=== PATIENT | female | born 1935 | race Caucasian/White ===

== ENCOUNTER 2018-05-07 11:10 | Observation (INO) ==
--- NOTE | 2018-05-07 11:40 | Emergency Department Note ---
General Adult HPI - General Source: patient Mode of arrival: ambulatory Limitations: no limitations - General Chief complaint: Blood Pressure Problem Stated complaint: hypotension, tingling in upper extremities Time Seen by Provider: 05/07/18 11:13 - History of Present Illness HPI Narrative: 82-year-old female presents with hypotension from [facility]. She had blood work done there and was treated with Rocephin for urinary tract infection. She states in the last 2 days she has had frequent urination and some pain with urination. She states every time she sits down to urinate she has a sensation that goes from her feet to her chest and it is intense and passes quickly. She denies any fever or chills. She states she does have some dizziness when she stands up. She does not take any blood pressure medication. She denies nausea or vomiting. She has been trying to drink a lot of water to help with the urinary tract infection. (Kimi Santos) - Related Data Home Medications Medication Instructions Recorded Confirmed Aspirin [Adult Low Dose Aspirin EC] 81 mg PO DAILY 04/15/17 05/07/18 Calcium Citrate/Vitamin D3 1 each PO BID 04/15/17 05/07/18 [Citracal + D Maximum Caplet] Ergocalciferol (Vitamin D2) 5,000 unit PO DAILY 04/15/17 05/07/18 [Vitamin D] Fish Oil 1,400 mg PO DAILY 04/15/17 05/07/18 Glucos/MSM/Colgii/C/Man/Herb21 1 each PO BID 04/15/17 05/07/18 [Glucosamine-MSM Complex Cap] Vitamin E 400 unit PO DAILY 04/15/17 05/07/18 fluticasone 50 mcg/actuation nasal 1 spray INTRANASAL QDAY PRN 09/30/17 05/07/18 spray,suspension ibuprofen 200 mg tablet 800 mg PO QDAY PRN tab 09/30/17 05/07/18 ketorolac 0.5 % eye drops 1 drp OPHTHALMIC Q8H PRN 09/30/17 05/07/18 magnesium oxide 400 mg capsule 400 mg PO QDAY cap 09/30/17 05/07/18 Previous Rx's Medication Instructions Recorded latanoprost 0.005 % eye drops 1 drp OPHTHALMIC QDAY #2.5 ml 12/05/16 dorzolamide 2 % eye drops 1 drp OPHTHALMIC BID #10 ml 12/08/16 E2/E3 20/80 1 mg/gm 0.5 mg TOPICAL .every other day 09/30/17 #60 g sertraline 50 mg tablet 50 mg PO QDAY #90 tab 11/24/17 omeprazole 40 mg capsule,delayed 40 mg PO BID #60 cap 12/01/17 release triamcinolone acetonide 0.1 % 1 applic TOPICAL BID #30 g 02/05/18 topical ointment hydroxyzine HCl 25 mg tablet 25 mg PO HS #30 tab 03/04/18 atorvastatin 40 mg tablet 40 mg PO QDAY #30 tab 04/01/18 Allergies Allergy/AdvReac Type Severity Reaction Status Date / Time codeine AdvReac Dizziness Verified 05/07/18 10:26 Review of Systems All systems ED: reviewed and negative except as stated. Past Medical History - Past Medical History Medical history: Reports: arthritis, dementia, GERD, hyperlipidemia, liver disease (cirrhosis), osteoporosis, TIA, other Psychiatric history: Reports: anxiety, depression [employer] history: Reports: non-contributory Surgical history ED: Reports: appendectomy, cholecystectomy, colectomy Family history: Reports: non-contributory - Social History smoking status: Never smoker Alcohol use: Reports: None Drug use: Reports: none Physical Exam Limitations: no limitations General appearance: alert, in no apparent distress Head: atraumatic Eye: Present: normal appearance. Absent: conjunctival injection Neck: Present: normal inspection, full ROM Chest: Present: normal inspection, symmetric chest wall rise Respiratory: Present: normal lung sounds bilaterally Cardiovascular: Present: regular rate, normal heart sounds Abdominal: Present: soft, normal bowel sounds. Absent: tenderness Extremities: Present: normal inspection, full ROM Neurological: Present: alert, oriented X3, CN II-XII intact Psychiatric: Present: normal affect, normal mood Skin: Present: warm, dry, intact Course Course Narrative: Patient states she has a history of low blood pressure throughout the day. She states she stands up quickly she gets dizzy and that has been going on for years. She states she has had multiple falls due to this. She states that the sensation of tingling over her body is new since his urinary tract infection. She has episodes when standing that she feels like she is going to pass out. She continues to have these symptoms of warmth over her body. Mild change with 2 L of fluid. She will be admitted for observation. (Santos,Kimi) Vital Signs Temperature 97.5 F 05/07/18 11:11 Pulse Rate 65 05/07/18 11:11 Respiratory Rate 14 05/07/18 11:11 Blood Pressure 125/73 05/07/18 11:11 Pulse Oximetry (%) 95 05/07/18 11:11 Temperature 97.5 F 05/07/18 11:11 Pulse Rate 67 05/07/18 14:31 Respiratory Rate 16 05/07/18 14:31 Blood Pressure 123/87 05/07/18 14:31 Pulse Oximetry (%) 93 05/07/18 14:31 Medical Decision Making - Lab Data Lab results reviewed: Yes I reviewed the patient's lab results. - Radiology Data Radiology results reviewed: Yes I reviewed the patient's radiology results. - EKG Data EKG #1 EKG attestation: Yes I reviewed and interpreted this EKG. - Lab Data Lab Results 05/07/18 05/07/18 Range/Units 11:42 11:42 VBG Lactic Acid 1.6 (0.5-2.2) mmol/L Troponin T < 0.01 (0-0.03) ng/ml - Radiology Data no acute disease (Santos,Kimi) - EKG Data EKG #1 EKG results narrative: RBBB no evidence of acute changes (Santos,Kimi) Disposition Pt seen by SNAKE CHARMER/PA only: Yes Clinical Impression: Hypotension, UTI (urinary tract infection) Disposition: Xfer As Outpt/Obs ([facility]) Condition: Fair Referrals: Letty Meyer DO [Primary Care Provider] -
[2018-05-07] MEDS ORDERED: 0.9 % SODIUM CHLORIDE 1,000 ML IV ONE ×2 (11:41→12:42)
--- NOTE | 2018-05-07 13:15 | XRay Report ---
CLINICAL INFORMATION: Shortness of breath COMPARISON: 06/09/2017 FINDINGS: Heart is normal in size and configuration. There is very heavy mitral annular calcification appreciated. Mediastinum and pulmonary vessels are normal. Lungs are clear. No effusions. Moderate degenerative disease at each level appreciated IMPRESSION: No acute disease - stable Interpreted and Authenticated by: Jose Curiel 05/07/18
--- NOTE | 2018-05-07 14:26 | Emergency Department Note ---
ED Note Addendum Note Addendum: agree with lab and dx.. Hospitalist Dr Mosher contacted by Kimi and he will be here to evaluate
[2018-05-07] MEDS ORDERED: KETOROLAC TROMETHAMINE OPHTHALMIC PRN (15:37)
[2018-05-07] MEDS ORDERED: FLUTICASONE PROPIONATE SPRAY.NAS NS PRN ×2 (15:37→17:12)
[2018-05-07] MEDS ORDERED: [UNRECOGNIZED DRUG - MIXTURE] TOPICAL SCH ×2 (15:45→17:12)
--- NOTE | 2018-05-07 16:04 | Internal Med History&Physical ---
Medical - H&P: HPI Patient information: Note initiated : 05/07/18 at 3:54 pm Service Date, if different from initiated Date: [] Patient: Davida Thorne a 82 y/o F admitted on for hypotension, n/t to extremities. Chief Complaint: UTI and warm tingly feeling and dizzyness on toilet voiding urine History of present illness: Ms. Thorne is a 82 year old F lives at [facility]. has been having recurrent UTI every 2 weeks to 2 months. Pt says this is evidenced by fevers, chills, dysuria and weakness. Also has had yeast vaginitis in past but not currently. Uses estrogen cream. Pt says US of bladder and kidneys ok. No obstruction or tumor. Pt has been having repeated falls in past but denies LOC. Says it occurred when blinded by sun and cataracts and also when she tripped. Has never awakened on the floor. Pt reports vertigo symptoms and was not improved by David maneuver. Pt denies abx allergy. Pt had sbp 90 on arrival and nausea and weak on rising initially. improved but still present after 1 liter NS improved further after 2nd liter. Pt reports has voided copiously now. The pt says drinks 4 glasses water minimum daily. Regardless she reports getting weak and dizzy with ambulation episodically and will test low for bp. TSH normal 3 times in last 2 years. Pt had right hemicolectomy for non adenoCA colon cancer 2 years ago. Denies getting chemo or radiation after. - Constitutional Constitutional: Present: fatigue, fever(s), frequent falls, malaise, weakness - EENT Eyes: Present: blurry vision (cataracts) Ears: Present: other (vertigo). Absent: decreased hearing, ear pain Nose, mouth and throat: Present: dizziness, vertigo. Absent: neck pain - Cardiovascular Cardiovascular: Present: irregular heart rhythm. Absent: chest pain, chest pain with activity, diaphoresis, palpatations - Respiratory Respiratory: Absent: cough, chest congestion - Gastrointestinal Gastrointestinal: Present: diarrhea, nausea (only with episode) - Genitourinary Genitourinary: Present: urinary frequency, urinary incontinence, vaginal dryness , vaginal pruritis Menstruation: Present: post menopausal - Musculoskeletal Musculoskeletal: Present: tingling - Integumentary Integumentary: Absent: swelling - Neurological Neurological: Present: frequent falls, vertigo, weakness. Absent: abnormal gait - Psychiatric Psychiatric: Present: anxiety - Endocrine Endocrine: Present: fatigue, flushing - Hematologic/Lymphatic Hematologic/Lymphatic: Absent: easy bleeding, easy bruising - Allergic/Immunologic Allergic/Immunologic: Absent: tongue swelling, throat swelling, wheezing Medical - H&P: PMH Medical history: recurrent UTI TIA colon Cancer rare type (not adenoca) vertigo Surgical history: Right hemicolectomy Social history: daughter in town is next of kin Wants full code status Smoking status: Never smoker Have you smoked in the last 12 months: No Drug use: none Alcohol use: none Employment history: teacher now retired Medical - H&P: Meds Home Medications Medication Instructions Recorded Confirmed Type latanoprost 0.005 % eye drops 1 drp OPHTHALMIC QDAY #2.5 ml 12/05/16 05/07/18 Rx dorzolamide 2 % eye drops 1 drp OPHTHALMIC BID #10 ml 12/08/16 05/07/18 Rx Aspirin [Adult Low Dose Aspirin EC] 81 mg PO DAILY 04/15/17 05/07/18 History Calcium Citrate/Vitamin D3 1 each PO BID 04/15/17 05/07/18 History [Citracal + D Maximum Caplet] Ergocalciferol (Vitamin D2) 5,000 unit PO DAILY 04/15/17 05/07/18 History [Vitamin D] Fish Oil 1,400 mg PO DAILY 04/15/17 05/07/18 History Glucos/MSM/Colgii/C/Man/Herb21 1 each PO BID 04/15/17 05/07/18 History [Glucosamine-MSM Complex Cap] Vitamin E 400 unit PO DAILY 04/15/17 05/07/18 History E2/E3 20/80 1 mg/gm 0.5 mg TOPICAL .every other day 09/30/17 05/07/18 Rx #60 g fluticasone 50 mcg/actuation nasal 1 spray INTRANASAL QDAY PRN 09/30/17 History spray,suspension ibuprofen 200 mg tablet 800 mg PO QDAY PRN tab 09/30/17 05/07/18 History ketorolac 0.5 % eye drops 1 drp OPHTHALMIC Q8H PRN 09/30/17 05/07/18 History magnesium oxide 400 mg capsule 400 mg PO QDAY cap 09/30/17 05/07/18 History sertraline 50 mg tablet 50 mg PO QDAY #90 tab 11/24/17 05/07/18 Rx omeprazole 40 mg capsule,delayed 40 mg PO BID #60 cap 12/01/17 05/07/18 Rx release triamcinolone acetonide 0.1 % 1 applic TOPICAL BID #30 g 02/05/18 05/07/18 Rx topical ointment hydroxyzine HCl 25 mg tablet 25 mg PO HS #30 tab 03/04/18 05/07/18 Rx atorvastatin 40 mg tablet 40 mg PO QDAY #30 tab 04/01/18 05/07/18 Rx Allergies Allergy/AdvReac Type Severity Reaction Status Date / Time codeine AdvReac Dizziness Verified 05/07/18 10:26 Medical - H&P: Exam - Constitutional Vitals: Temp Pulse Resp BP Pulse Ox 97.5 F 67 16 123/87 93 05/07/18 11:11 05/07/18 14:31 05/07/18 14:31 05/07/18 14:31 05/07/18 14:31 General appearance: average body habitus, no acute distress - Head Head exam: Present: atraumatic, normal inspection, normocephalic - Eye Eye exam: Present: EOMI, normal appearance, PERRL. Absent: conjunctival injection, nystagmus, scleral icterus Pupils: Present: normal accommodation, PERRL - ENT ENT exam: Present: mucous membranes moist, normal oropharynx - Expanded ENT Exam Nose & sinuses exam: Present: external nose, grossly normal Mouth exam: Present: normal external inspection, tongue normal Teeth exam: Present: edentulous (dentures upper) - Neck Neck exam: Present: full ROM. Absent: tenderness - Expanded Neck Exam Neck exam: Absent: tenderness, thyroid mass - Respiratory Respiratory exam: Present: normal respiratory exam - Cardiovascular Cardiovascular exam: Present: normal rate and rhythm. Absent: systolic murmur Additional comments: some irregularity on rhythm but sinus arrhythmia no pause - Expanded Cardiovascular Exam Peripheral pulses: 1+: dorsalis pedis (L), dorsalis pedis (R), radial (L), radial (R) - GI/Abdominal GI/Abdominal exam: Present: normal bowel sounds, soft. Absent: rebound, rigid, tenderness - Rectal Rectal exam: Absent: deferred - Expanded Exam Female exam: Absent: deferred Bladder Distention Description: None - Extremities Exam Extremities exam: Absent: pedal edema, tenderness - Expanded Neurological Exam Neurological exam expanded: Absent: ataxia, expressive aphasia Patient oriented to: Present: person, place Speech: Present: fluid speech (normal) Ataxia: Absent: yes Medical - H&P: Reslt - Labs Labs: Cardiac Enzymes 05/07/18 Range/Units 11:42 Troponin T < 0.01 (0-0.03) ng/ml - EKG Data Prior EKG available for review: yes EKG comments: 05/07/18 16:23 sinus arrhythmia and PACs Medical - H&P: A/P (1) Vasovagal near-syncope Current visit: Yes Status: Acute will monitor on telemetry and increase activity with physical therapy and observation admission (2) Hypotension Current visit: Yes Status: Acute resolved with fluid. orthostatics now negative but pt has recurrent dehydration will check am cosyntropin stim test. could not perform outpt so placed in observation. (3) UTI (urinary tract infection) Current visit: Yes Status: Acute cont rocephin pending urine culture results (4) N&V (nausea and vomiting) Current visit: No Status: Chronic awaiting am cortisol stim test. - Narrative A/P Narrative: 70 mins spent in evaluation and coordination of care for this patient today
[2018-05-07] MEDS ORDERED: KETOROLAC TROMETHAMINE 3 ML DROPS OP PRN (19:00)
[2018-05-07] MEDS: TIMOLOL MALEATE OU SCH (21:00)
[2018-05-07] MEDS ORDERED: DORZOLAMIDE HCL OPHTHALMIC SCH (21:00)
[2018-05-07] MEDS ORDERED: TRIAMCINOLONE ACETONIDE TOPICAL SCH (21:00)
[2018-05-07] MEDS ORDERED: NON FORMULARY MEDICATION 1 DOSE MISCELL (Omeprazole 40 MG) PO SCH (21:00)
[2018-05-07] MEDS: DORZOLAMIDE HCL OU SCH (21:00)
[2018-05-07] MEDS: TRIAMCINOLONE ACETONIDE TOPICAL SCH (21:00)
[2018-05-07] MEDS ORDERED: ATORVASTATIN 20 MG TABLET PO SCH (21:00)
[2018-05-07] MEDS: CALCIUM W/VIT D3 500 MG TABLET PO SCH (21:12)
[2018-05-07] MEDS ORDERED: 0.9 % SODIUM CHLORIDE 10 ML SYRINGE IV SCH (22:00)
[2018-05-08] MEDS ORDERED: COSYNTROPIN 0.25 MG VIAL IV ONE (06:01)
[2018-05-08] MEDS ORDERED: ACETAMINOPHEN 325 MG TABLET PO PRN (07:19)
[2018-05-08] MEDS ORDERED: OMEPRAZOLE 20 MG CAPSULE PO SCH (07:30)
[2018-05-08 07:38] LABS: Cortisol,AM 13.1 ug/dl (6.2-19.4)
[2018-05-08] MEDS ORDERED: NON FORMULARY MEDICATION 1 DOSE MISCELL (Aspirin [Adult Low Dose Aspirin Ec] 81 MG) PO SCH (09:00)
[2018-05-08] MEDS ORDERED: NON FORMULARY MEDICATION 1 DOSE MISCELL (Magnesium Oxide [Magnesium] 400 MG) PO SCH (09:00)
[2018-05-08] MEDS ORDERED: [UNRECOGNIZED DRUG - OTHER] PO SCH (09:00)
[2018-05-08] MEDS ORDERED: VITAMIN E (DL,TOCOPHERYL ACET) 400 UNIT CAPSULE PO SCH (09:00)
[2018-05-08] MEDS ORDERED: LATANOPROST OPHTHALMIC SCH (09:00)
[2018-05-08] MEDS ORDERED: VITAMIN E 400 UNIT PO SCH (09:00)
[2018-05-08] MEDS ORDERED: ASPIRIN 81 MG TAB.CHEW PO SCH (09:00)
[2018-05-08] MEDS ORDERED: VITAMIN D3 5,000 UNIT CAPSULE PO SCH (09:00)
[2018-05-08] MEDS ORDERED: MAGNESIUM OXIDE 400 MG TABLET PO SCH (09:00)
[2018-05-08] MEDS ORDERED: ERGOCALCIFEROL PO SCH (09:00)
[2018-05-08] MEDS ORDERED: SERTRALINE 50 MG TABLET PO SCH ×2 (09:00)
[2018-05-08] MEDS ORDERED: NON FORMULARY MEDICATION 1 DOSE MISCELL (Omeprazole 40 MG) PO SCH (09:00)
[2018-05-08] MEDS ORDERED: ATORVASTATIN 40 MG TABLET PO SCH (09:00)
[2018-05-08] MEDS: TIMOLOL MALEATE OU SCH (09:20)
[2018-05-08] MEDS: DORZOLAMIDE HCL OU SCH (09:20)
[2018-05-08] MEDS: TRIAMCINOLONE ACETONIDE TOPICAL SCH (09:21)
[2018-05-08] MEDS: CALCIUM W/VIT D3 500 MG TABLET PO SCH (09:27)
--- NOTE | 2018-05-08 10:47 | Discharge Summary ---
Medical - DS: Prov Patient information: Note initiated : 05/08/18 at 10:39 am Service Date, if different from initiated Date: [] Patient: Davida Thorne 82 y/o F admitted on 05/07/18 for hypotension, n /t to extremities. Chief Complaint: [] Date of admission: 05/07/18 17:00 Discharge date: 05/08/18 (to assisted care) Primary care physician: Letty Meyer DO Admitting clinician: Floyd Mosher Attending physician on admission: Floyd Mosher Consults: 05/07/18 13:42 Consult to Physician [CONS] Stat Comment: Consulting Provider: Floyd Mosher Reason For Exam: Physician to Consult Attending physician on discharge: Floyd Mosher Medical - DS: Meds - Discharge Medications Active and Home Medications: Home Medications latanoprost 0.005 % eye drops 1 drp OPHTHALMIC QDAY #2.5 ml 12/05/16 [Rx Confirmed 05/07/18 Last Taken Unknown] dorzolamide 2 % eye drops 1 drp OPHTHALMIC BID #10 ml 12/08/16 [Rx Confirmed 07/17 Last Taken Unknown] Aspirin [Adult Low Dose Aspirin EC] 81 mg PO DAILY 04/15/17 [History Confirmed 05/07/18 Last Taken Unknown] Calcium Citrate/Vitamin D3 [Citracal + D Maximum Caplet] 1 each PO BID 04/15/17 [History Confirmed 05/07/18 Last Taken Unknown] Ergocalciferol (Vitamin D2) [Vitamin D] 5,000 unit PO DAILY 04/15/17 [History Confirmed 05/07/18 Last Taken Unknown] Fish Oil 1,400 mg PO DAILY 04/15/17 [History Confirmed 05/07/18 Last Taken Unknown] Glucos/MSM/Colgii/C/Man/Herb21 [Glucosamine-MSM Complex Cap] 1 each PO BID 04/15 [History Confirmed 05/07/18 Last Taken Unknown] Vitamin E 400 unit PO DAILY 04/15/17 [History Confirmed 05/07/18 Last Taken Unknown] E2/E3 20/80 1 mg/gm 0.5 mg TOPICAL .every other day #60 g 09/30/17 [Rx Confirmed 05/07/18 Last Taken Unknown] fluticasone 50 mcg/actuation nasal spray,suspension 1 spray INTRANASAL QDAY PRN 09/30/17 [History Confirmed 05/07/18 Last Taken Unknown] ibuprofen 200 mg tablet 800 mg PO QDAY PRN tab 09/30/17 [History Confirmed 07/17 Last Taken Unknown] ketorolac 0.5 % eye drops 1 drp OPHTHALMIC Q8H PRN 09/30/17 [History Confirmed 05/07/18 Last Taken Unknown] magnesium oxide 400 mg capsule 400 mg PO QDAY cap 09/30/17 [History Confirmed 05/07/18 Last Taken Unknown] sertraline 50 mg tablet 50 mg PO QDAY #90 tab 11/24/17 [Rx Confirmed 05/07/18 Last Taken Unknown] omeprazole 40 mg capsule,delayed release 40 mg PO BID #60 cap 12/01/17 [Rx Confirmed 05/07/18 Last Taken Unknown] triamcinolone acetonide 0.1 % topical ointment 1 applic TOPICAL BID #30 g [Rx Confirmed 05/07/18 Last Taken Unknown] hydroxyzine HCl 25 mg tablet 25 mg PO HS #30 tab 03/04/18 [Rx Confirmed Last Taken Unknown] atorvastatin 40 mg tablet 40 mg PO QDAY #30 tab 04/01/18 [Rx Confirmed 05/07/18 Last Taken Unknown] Medical - DS: Hosp Hospital course: Mr. Thorne is a 82 year old F admitted for symptoms UTI seen in [facility] and found to have hypotension and orthostasis. This improved with 2 liters IVF and she has had not further near syncope. Pt Rhythm is NSR with frequent PACs and occ PVC but not pauses, zena or tachyarrhythmia. Pt reports recurrent UTI but the UA in [facility] only weakly positive. Culture is pending. Additionally pt report 4 trip falls and no passing out but given vertigo and frequent orthostatic hypotension we monitored overnight and no orthostasis or arrhythmia. Pt also has normal cosyntropin stimulation test. Discharge diagnosis: Orthostatic hypotension resolved Secondary discharge diagnosis: recurrent UTI Reason for admission: recurrent falls/near syncope - Time Spent with Patient Total time spent providing and/or coordinating discharge services: 35 minutes Greater than 30 minutes Specific discharge activities: follow up with PCP or urology in 1 week Medical - DS: Exam - Constitutional Vitals: Vital Signs Temp Pulse Pulse Resp BP BP Pulse Ox 05/08/18 07:43 97.7 F 66 16 132/77 93 05/08/18 04:00 97.8 F 20 131/74 95 05/08/18 00:00 97.5 F 18 121/84 94 05/07/18 21:00 70 93 05/07/18 20:51 69 122/71 93 05/07/18 20:00 98.4 F 72 16 122/71 95 05/07/18 17:25 98.0 F 64 18 129/77 97 05/07/18 17:20 129/77 05/07/18 17:00 98.0 F 65 67 18 135/66 129/77 97 05/07/18 16:40 65 96 05/07/18 16:27 66 135/66 94 05/07/18 15:31 13 135/66 05/07/18 15:16 16 132/75 05/07/18 15:07 21 127/73 05/07/18 15:06 21 122/69 05/07/18 15:03 21 111/62 05/07/18 14:46 64 12 120/70 93 05/07/18 14:31 67 16 123/87 93 05/07/18 14:16 66 13 107/65 92 05/07/18 13:46 15 106/54 05/07/18 13:31 14 105/63 05/07/18 13:29 16 05/07/18 13:22 22 119/77 05/07/18 13:19 107/48 05/07/18 13:16 71 19 96/61 96 05/07/18 13:01 14 91/51 05/07/18 12:46 69 14 92/54 91 05/07/18 12:31 71 14 99/64 91 05/07/18 12:20 14 92/52 05/07/18 11:11 97.5 F 65 14 125/73 95 Intake and Output 05/07/18 05/08/18 05/08/18 21:59 05:59 13:59 Intake Total 360 / 360 300 / 300 590 / 590 Output Total 750 / 750 550 / 550 Balance 359 / 359 -450 / -450 40 / 40 Intake: Oral 360 / 360 300 / 300 590 / 590 Output: Void Amount 750 / 750 550 / 550 # of times incontinent of urine Other: Meal Dinner Breakfast Percent of Meal Consumed 100% 100% Feeding Ability Independent # Voids 1 1 Weight 168 lb - Head Additional comments: some thickening of posterior occipital scalp with dry skin but no fluctuance or infection seen - Respiratory Respiratory exam: Present: CTAB. Absent: rales, respiratory distress, wheezes - Cardiovascular Cardiovascular exam: Present: normal rate and rhythm - Extremities Exam Extremities exam: Absent: calf tenderness, pedal edema - Psychiatric Psychiatric exam: Present: normal affect, normal mood Medical - DS: Data Labs on day of discharge: Labs from last 24 hours 05/08/18 05/08/18 05/08/18 07:12 06:28 06:02 VBG Lactic Acid Troponin T Cortisol AM Sample 13.1 Cortisol Resp 30 Min 19.6 TNP Cortisol Resp 60 Min 21.4 05/07/18 05/07/18 11:42 11:42 VBG Lactic Acid 1.6 Troponin T < 0.01 Cortisol AM Sample Cortisol Resp 30 Min Cortisol Resp 60 Min Medical - DS: A/P - Patient/Caregiver Discharge Instructions Activity: increase activity as tolerated, resume usual activities as tolerated Diet: Regular Diet - Problem Maintenance (1) Vasovagal near-syncope Status: Acute Comment: no recurrence in hospital. orthostasis resolved after fluid infusion (2) Hypotension Status: Acute Comment: resolved Qualifiers: Hypotension type: orthostatic hypotension Qualified Code(s): I95.1 - Orthostatic hypotension (3) UTI (urinary tract infection) Status: Acute Qualifiers: Urinary tract infection type: acute cystitis Hematuria presence: without hematuria Qualified Code(s): N30.00 - Acute cystitis without hematuria (4) N&V (nausea and vomiting) Status: Resolved Qualifiers: Vomiting type: bilious vomiting Qualified Code(s): R11.14 - Bilious vomiting - Follow up Plan Follow up with: Letty Meyer DO [Primary Care Provider] - Disposition: Home, Self-Care Prognosis: Good Rehab Potential: Good I certify that the patient requires SNF services: No Overall status at discharge: patient is back to baseline Medical - DS: Qual - VTE Deep Vein Thrombosis/Pulmonary Embolism Present on Admission: No
[2018-05-08] MEDS ORDERED: LATANOPROST 0.005% OU SCH (21:00)
[2018-05-08] MEDS ORDERED: EYE OU SCH (21:00)
== END 2018-05-08 12:00 | disposition home or self-care (01) ==
LOC: ED 11:10 → ICU 11:10
PROVIDERS: ADMIT Internal Medicine; ATTEND Internal Medicine

== ENCOUNTER 2018-08-14 04:22 | Observation (INO) ==
[2018-08-14] MEDS ORDERED: ONDANSETRON 4 MG/2 ML VIAL IV ONE ×2 (04:28→07:46)
[2018-08-14] MEDS ORDERED: 0.9 % SODIUM CHLORIDE 1,000 ML IV ONE ×2 (04:36→06:19)
[2018-08-14 05:30] LABS: Basophils # (Auto) 0 K/mcL (0.0-0.3); Basophils % (Auto) 0.3 % (0.0-2.0); Eosinophils # (Auto) 0.1 K/mcL (0.0-0.7); Eosinophils % (Auto) 0.9 % (0.0-7.0); Granulocytes % (Auto) 92.1 % (38.0-78.0); Lymphocytes # (Auto) 0.5 K/mcL (1.5-4.8); Lymphocytes % (Auto) 3.9 % (15.5-49.0); Mean Cell Volume 97.5 fL (80.0-100.0); Mean Corpuscular HGB Conc 33.3 g/dL (31.0-36.0); Mean Corpuscular Hemoglobin 32.5 pg (26.0-34.0); Monocytes # (Auto) 0.4 K/mcL (0.1-0.9); Monocytes % (Auto) 2.8 % (1.0-12.0); Platelet Count 225 K/mcL (140-440); RBC 4.72 M/mcL (4.00-5.20); Red Cell Distribution Width 13.7 % (11.5-14.5)
[2018-08-14 06:08] LABS: ALT/SGPT 30 U/l (0-40); Albumin 4.5 gm/dL (3.2-5.2); Albumin/Globulin Ratio 1.5 (1.0-2.3); Alkaline Phosphatase 86 U/L (39-117); Blood Urea Nitrogen 20 mg/dl (8-23)
--- NOTE | 2018-08-14 07:24 | Emergency Department Note ---
Nausea/Vomiting/Diarrhea HPI - General Chief complaint: Nausea/Vomiting/Diarrhea Stated complaint: nausea Time Seen by Provider: 08/14/18 06:50 Source: patient Mode of arrival: wheelchair Limitations: no limitations - History of Present Illness HPI Narrative: This patient has had nausea vomiting from midnight to about 4 AM when she came into the emergency room. She feels thirsty and dehydrated and says some diarrhea. MD complaint: nausea, vomiting Onset (ago): hour(s) Description of Vomiting: watery Associated Abdominal Pain: Yes Location of pain: diffuse Severity: mild Quality: cramping Consistency: intermittent Improves with: none Worsens with: none - Related Data Home Medications Medication Instructions Recorded Confirmed Aspirin [Adult Low Dose Aspirin EC] 81 mg PO DAILY 04/15/17 08/10/18 Calcium Citrate/Vitamin D3 1 each PO BID 04/15/17 08/10/18 [Citracal + D Maximum Caplet] Vitamin E 400 unit PO DAILY 04/15/17 08/10/18 fluticasone 50 mcg/actuation nasal 1 spray INTRANASAL QDAY PRN 09/30/17 08/10/18 spray,suspension ibuprofen 200 mg tablet 800 mg PO QDAY PRN tab 09/30/17 08/10/18 ketorolac 0.5 % eye drops 1 drp OPHTHALMIC Q8H PRN 09/30/17 08/10/18 magnesium oxide 400 mg capsule 400 mg PO QDAY cap 09/30/17 08/10/18 benzonatate 100 mg capsule 100 mg PO TID PRN 06/01/18 08/10/18 cholecalciferol (vitamin D3) 5,000 5,000 unit PO QDAY 06/01/18 08/10/18 unit capsule phenazopyridine 95 mg tablet 190 mg PO TID PRN tab 06/01/18 08/10/18 calcium carb,cit ER 600 mg 1 tab PO BID tab 06/10/18 08/10/18 calcium-vit D3 500 unit tablet,ext.release cetirizine 10 mg capsule 10 mg PO QDAY cap 06/10/18 08/10/18 glucosamine sulfate PO BID 06/10/18 08/10/18 ibuprofen 200 mg tablet 400 mg PO Q4H PRN tab 06/10/18 08/10/18 ketorolac 0.5 % eye drops 1 drp OPHTHALMIC TID PRN ml 06/10/18 08/10/18 latanoprost 0.005 % eye drops 1 drp OPHTHALMIC QHS ml 06/10/18 08/10/18 omega-3 fatty acids 1,000 mg 1,000 mg PO QDAY 06/10/18 08/10/18 capsule solifenacin 5 mg tablet 5 mg PO QDAY 06/10/18 08/10/18 tramadol 50 mg tablet 50 mg PO Q4H PRN tab 06/10/18 08/10/18 Previous Rx's Medication Instructions Recorded dorzolamide 2 % eye drops 1 drp OPHTHALMIC BID #10 ml 12/08/16 sertraline 50 mg tablet 50 mg PO QDAY #90 tab 11/24/17 triamcinolone acetonide 0.1 % 1 applic TOPICAL BID #30 g 02/05/18 topical ointment atorvastatin 40 mg tablet 40 mg PO QDAY #90 tab 06/10/18 omeprazole 40 mg capsule,delayed 40 mg PO BID #180 cap 06/30/18 release Allergies Allergy/AdvReac Type Severity Reaction Status Date / Time codeine AdvReac Mild Dizziness Verified 08/14/18 04:27 Review of Systems All systems ED: reviewed and negative except as stated. Past Medical History - Past Medical History Medical history: Reports: arthritis, dementia, GERD, hyperlipidemia, liver disease (cirrhosis), osteoporosis, TIA, other Psychiatric history: Reports: anxiety, depression [employer] history: Reports: non-contributory Surgical history ED: Reports: appendectomy, cholecystectomy, colectomy - Social History smoking status: Former smoker Alcohol use: Reports: None Drug use: Reports: none Physical Exam Limitations: no limitations General appearance: alert Head: atraumatic Eye: Present: normal appearance ENT: normal exam Neck: Present: normal inspection Chest: Present: normal inspection Respiratory: Present: normal lung sounds bilaterally Cardiovascular: Present: regular rate, normal rhythm, normal heart sounds Abdominal: Present: soft, tenderness. Absent: distention, guarding, rebound Abdominal tenderness: Present: diffuse, mild Neurological: Present: alert Psychiatric: Present: normal affect, normal mood Skin: Present: warm, dry, intact Course Vital Signs Temperature 96.8 F L 08/14/18 04:22 Pulse Rate 75 08/14/18 04:22 Respiratory Rate 18 08/14/18 04:22 Blood Pressure 97/83 08/14/18 04:22 Pulse Oximetry (%) 99 08/14/18 04:22 Temperature 96.8 F L 08/14/18 04:22 Pulse Rate 92 H 08/14/18 08:37 Respiratory Rate 16 08/14/18 08:37 Blood Pressure 89/63 08/14/18 08:32 Pulse Oximetry (%) 93 08/14/18 08:37 Nausea/Vomiting/Diarrhea - [facility] Narrative Medical decision making narrative: Patient's laboratory evaluation so far is not too remarkable she has a slight elevated white count. Her chest x-ray is read as showing interstitial edema which is new for her she has never had any history of heart failure in the past and has no edema. She does require oxygen and is without oxygen her saturations are in the mid 80s. She continues to feel nauseated and very weak and has had 2 L of fluid and despite that her blood pressure is 89 systolic. I discussed this case with Dr. Langston the patient will be admitted to the hospital. - Lab Data Lab results reviewed: Yes I reviewed the patient's lab results. Result diagrams: 08/14/18 04:37 08/14/18 04:37 Lab Results 08/14/18 08/14/18 08/14/18 Range/Units 04:37 04:37 07:47 WBC 13.4 H (4.5-11.0) K/mcL RBC 4.72 (4.00-5.20) M/mcL Hgb 15.3 H (12.0-15.0) g/dL Hct 46.1 (36.0-48.0) % MCV 97.5 (80.0-100.0) fL MCH 32.5 (26.0-34.0) pg MCHC 33.3 (31.0-36.0) g/dL RDW 13.7 (11.5-14.5) % Plt Count 225 (140-440) K/mcL MPV 8.4 (7.4-10.4) fL Gran % 92.1 H (38.0-78.0) % Lymph % (Auto) 3.9 L (15.5-49.0) % [place] % (Auto) 2.8 (1.0-12.0) % Eos % (Auto) 0.9 (0.0-7.0) % Baso % (Auto) 0.3 (0.0-2.0) % Gran # 12.3 H (1.8-8.0) K/mcL Lymph # (Auto) 0.5 L (1.5-4.8) K/mcL [place] # (Auto) 0.4 (0.1-0.9) K/mcL Eos # (Auto) 0.1 (0.0-0.7) K/mcL Baso # (Auto) 0 (0.0-0.3) K/mcL Sodium 139 (133-145) mmol/L Potassium 4.0 (3.3-5.1) mmol/L Chloride 101 (96-108) mmol/L Carbon Dioxide 26 (22-30) mmol/L Anion Gap 12.0 (8-16) BUN 20 (8-23) mg/dl Creatinine 0.9 (0.6-1.1) mg/dl GFR Calculation 59 Glucose 150 H (70-105) mg/dL Calcium 9.2 (8.6-10.4) mg/dl Total Bilirubin 1.2 H (0.0-1.0) mg/dL AST 37 (0-37) U/l ALT 30 (0-40) U/l Alkaline Phosphatase 86 (39-117) U/L Total Protein 7.6 (5.9-8.4) gm/dL Albumin 4.5 (3.2-5.2) gm/dL Globulin 3.1 (2.2-3.7) gm/dL Albumin/Globulin Ratio 1.5 (1.0-2.3) Urine Color Yellow Urine Appearance Clear Urine pH 5.0 (5.0-9.0) Ur Specific [place] 1.020 (1.000-1.035) Urine Protein Neg (NEG) mg/dL Urine Glucose (UA) Negative (NEG) mg/dL Urine Ketones Neg (NEG) mg/dL Urine Occult Blood Neg (<0.03) mg/dL Urine Nitrate Neg (NEG) Urine Bilirubin Neg (NEG) mg/dL Urine Urobilinogen Neg (NEG) mg/dL Ur Leukocyte Esterase Neg (NEG) /uL Urine RBC 5 H (0-1) /hpf Urine WBC < 1 (0-4) /hpf Ur Squamous Epith Cells 1 (0-4) /hpf Amorphous Crystals Few A (0) /hpf Urine Bacteria 0 (0) /hpf Urine Mucus Few (0) /hpf Ur Culture Indicated? No - Radiology Data Radiology results reviewed: Yes I reviewed the patient's radiology results. Disposition Pt seen by [facility]/PA only: No Clinical Impression: Gastroenteritis, Hypoxia, Hypotension, Interstitial edema Disposition: Xfer As Inpt ([facility]) Condition: Good Referrals: aIm Peace MD [Primary Care Provider] - Time of Disposition: 08:55
[2018-08-14] MEDS ORDERED: PROMETHAZINE 25 MG/ML VIAL IV ONE (08:23)
[2018-08-14] MEDS ORDERED: LACTATED RINGERS 1,000 ML IV ONE (08:23)
--- NOTE | 2018-08-14 08:39 | XRay Report ---
INDICATION: Dyspnea TECHNIQUE: PA and lateral upright chest x-ray COMPARISON: 05/07/2018, 06/09/2017 FINDINGS: No pulmonary parenchymal consolidation. No pneumonia. There are septal lines which are new since 05/07/2018. Mild interstitial edema is possible. No evidence for alveolar edema. Heart size and vascularity are unchanged. There is prominent mitral valve annular calcification, unchanged Yuly and mediastinum are negative. No pleural fluid. IMPRESSION: 1. Findings consistent with mild interstitial pulmonary edema 2. No other acute abnormality. No focal infiltrate. Interpreted and Authenticated by: Jose Pham 08/14/18
[2018-08-14 08:50] LABS: Appearance,Urine CLEAR; Bacteria,Urine 0 /hpf (0); Bilirubin,Urine NEG (NEG); Color,Urine YELLOW; Glucose,Urine (UA) NEGATIVE (NEG); Leukocyte Esterase,Urine NEG /uL (NEG); Mucus,Urine FEW /hpf (0); Protein,Urine NEG (NEG); Urine Amorphous Crystals FEW /hpf (0); Urine Blood NEG mg/dL (<0.03); Urine RBC 5 /hpf (0-1); Urine Squamous Epithelial Cell 1 /hpf (0-4); Urine WBC < 1 /hpf (0-4); Urobilinogen,Urine NEG (NEG)
[2018-08-14 09:12] LABS: proBNP 381.6 pg/ml (0-450)
--- NOTE | 2018-08-14 09:30 | Internal Med History&Physical ---
Medical - H&P: [facility] Patient information: Note initiated : 08/14/18 at 9:25 am Service Date, if different from initiated Date: [] Patient: Davida Thorne a 82 y/o F admitted on for nausea. Chief Complaint: [] History of present illness: Ms. Thorne is a 82 year old F Complains of nausea vomiting starting at 4 AM this morning from [place]. Last night she ate some soup and avocado went to bed feeling okay. She woke up around 4 feeling like she had an upset stomach she went to the bathroom threw up food contents. Went back to bed and immediately return to the bathroom to throw up. She said she been throwing up all morning. She threw up about 20 times first of this food ended up being yellow fluid very acidic. Denies any chest pain or shortness of breath. States her stomach is still upset. No recent illnesses. No diarrhea. Patient seen in the ER found to be mildly hypotensive given fluid resuscitation with good results. Also found to be mildly hypoxic, and placed on nasal cannula. Chest x-ray done with some interstitial prominence low BNP. No peripheral edema. Because of the hypoxia patient will be observed overnight. Concern for aspiration pneumonitis. Review of Systems: Positive for nausea vomiting upset stomach. Positive for headache fever chills. denies chest pain/cough/dyspnea/diarrhea. Remaining 10 point review of systems reviewed and negative Medical - H&P: PMH Medical history: Medical History (Last Reviewed 08/03/18 @ 15:33 by Jacki Marques DO) Sinus problem (Chronic) Rhinitis (Chronic) Bronchitis (Chronic) High cholesterol (Chronic) Recurrent falls (Chronic) Headache (Chronic) Sleep apnea with use of continuous positive airway pressure (CPAP) (Chronic) Itch of skin (Chronic) Chronic rhinitis (Chronic) Depressive disorder (Chronic) Glaucoma (Acute) Hypotension (Acute) Vasovagal near-syncope (Acute) TRUMAN on CPAP (Chronic) Paronychia of great toe, left (Acute) Atopic dermatitis (Acute) Urinary tract infection (Acute) UTI (urinary tract infection) (Acute) N&V (nausea and vomiting) (Resolved) Colicky epigastric pain (Acute) UTI (urinary tract infection) (Acute) Incontinence in female (Chronic) Wellness examination (Chronic) Sinusitis (Acute) Ingrowing toenail (Acute) TIA (transient ischemic attack) (Chronic ~2004) Osteoporosis (Chronic) Liver disease (Chronic) Hyperlipidemia (Chronic) Gallbladder problem (Chronic ~2014) Depression (Chronic) Daytime sleepiness (Chronic) Arthritis (Chronic) Anxiety (Chronic) Acid reflux (Chronic) History of tobacco use (Resolved) Past Surgical History (Last Reviewed 04/06/18 @ 13:18 by RAFIA Garibay) History of hysterectomy (Acute) H/O colonoscopy (Chronic 01/01/17) History of cholecystectomy (Chronic ~11/2014) History of colon resection (Chronic ~05/2015) History of esophagogastroduodenoscopy (EGD) (Chronic 01/01/17) Hx of appendectomy (Chronic ~05/2015) Hx of rotator cuff surgery (Chronic ~12/2009) Family History (Last Reviewed 04/06/18 @ 13:18 by RAFIA Garibay) Brother Bladder cancer Esophagus cancer Mother from motor vehicle accident 44 Father was healthy Social History (Last Updated 08/10/18 @ 15:00 by Iam Peace MD) Patient denies tobacco use or ever using Drinks alcohol rarely Does not use a cane or walker to [facility] Resides at [facility] Medical - H&P: Meds Home Medications Medication Instructions Recorded Confirmed Type dorzolamide 2 % eye drops 1 drp OPHTHALMIC BID #10 ml 12/08/16 08/14/18 Rx Aspirin [Adult Low Dose Aspirin EC] 81 mg PO DAILY 04/15/17 08/14/18 History Calcium Citrate/Vitamin D3 1 each PO BID 04/15/17 08/14/18 History [Citracal + D Maximum Caplet] Vitamin E 400 unit PO DAILY 04/15/17 08/14/18 History fluticasone 50 mcg/actuation nasal 1 spray INTRANASAL QDAY PRN 09/30/17 History spray,suspension ibuprofen 200 mg tablet 800 mg PO QDAY PRN tab 09/30/17 08/14/18 History ketorolac 0.5 % eye drops 1 drp OPHTHALMIC Q8H PRN 09/30/17 08/14/18 History magnesium oxide 400 mg capsule 400 mg PO QDAY cap 09/30/17 08/14/18 History sertraline 50 mg tablet 50 mg PO QDAY #90 tab 11/24/17 08/14/18 Rx triamcinolone acetonide 0.1 % 1 applic TOPICAL BID #30 g 02/05/18 08/14/18 Rx topical ointment benzonatate 100 mg capsule 100 mg PO TID PRN 06/01/18 08/14/18 History cholecalciferol (vitamin D3) 5,000 5,000 unit PO QDAY 06/01/18 08/14/18 History unit capsule phenazopyridine 95 mg tablet 190 mg PO TID PRN tab 06/01/18 08/14/18 History atorvastatin 40 mg tablet 40 mg PO QDAY #90 tab 06/10/18 08/14/18 Rx calcium carb,cit ER 600 mg 1 tab PO BID tab 06/10/18 08/14/18 History calcium-vit D3 500 unit tablet,ext.release cetirizine 10 mg capsule 10 mg PO QDAY cap 06/10/18 08/14/18 History glucosamine sulfate 1,500 mg PO BID 06/10/18 08/14/18 History ibuprofen 200 mg tablet 400 mg PO Q4H PRN tab 06/10/18 08/14/18 History ketorolac 0.5 % eye drops 1 drp OPHTHALMIC TID PRN ml 06/10/18 08/14/18 History latanoprost 0.005 % eye drops 1 drp OPHTHALMIC QHS ml 06/10/18 08/14/18 History omega-3 fatty acids 1,000 mg 1,000 mg PO QDAY 06/10/18 08/14/18 History capsule solifenacin 5 mg tablet 5 mg PO QDAY 06/10/18 08/14/18 History tramadol 50 mg tablet 50 mg PO Q4H PRN tab 06/10/18 08/14/18 History omeprazole 40 mg capsule,delayed 40 mg PO BID #180 cap 06/30/18 08/14/18 Rx release Acetaminophen [Tylenol] 500 mg PO Q4-6HP PRN 08/14/18 08/14/18 History Allergies Allergy/AdvReac Type Severity Reaction Status Date / Time codeine AdvReac Mild Dizziness Verified 08/14/18 04:27 Medical - H&P: Exam - Constitutional Vitals: Temp Pulse Resp BP Pulse Ox 96.8 F L 95 H 16 99/73 91 08/14/18 04:22 08/14/18 09:19 08/14/18 08:37 08/14/18 09:16 08/14/18 09:19 Exam: General: Alert, Awake, No acute Distress HEENT: EOMI, normocephalic atraumatic, pupils equal round reactive to light, dry mucous membranes CV: RRR, normal s1/s2 Pulm: Clear b/l, no wheezing/rhonchi/rales Abd: soft, mild generalized tenderness to abdominal wall s/p emesis, no focal tenderness, +BS x4 Ext: no clubbing/cyanosis/edema Neuro: Alert, no focal deficits, moves all extremities Skin: warm/dry ` Medical - H&P: Reslt - Labs CBC & Chem 7: 08/14/18 04:37 08/14/18 04:37 Labs: Short CBC 08/14/18 Range/Units 04:37 WBC 13.4 H (4.5-11.0) K/mcL Hgb 15.3 H (12.0-15.0) g/dL Hct 46.1 (36.0-48.0) % Plt Count 225 (140-440) K/mcL BMP 08/14/18 04:37 Sodium 139 Potassium 4.0 Chloride 101 Carbon Dioxide 26 BUN 20 Creatinine 0.9 Glucose 150 H Calcium 9.2 Liver Function 08/14/18 Range/Units 04:37 Total Bilirubin 1.2 H (0.0-1.0) mg/dL AST 37 (0-37) U/l ALT 30 (0-40) U/l Alkaline Phosphatase 86 (39-117) U/L Albumin 4.5 (3.2-5.2) gm/dL Urine 08/14/18 Range/Units 07:47 Urine Color Yellow Urine Appearance Clear Urine pH 5.0 (5.0-9.0) Ur Specific [place] 1.020 (1.000-1.035) Urine Protein Neg (NEG) mg/dL Urine Glucose (UA) Negative (NEG) mg/dL Medical - H&P: A/P - Narrative A/P Narrative: A: *Gastroenteritis with N/V: *Respiratory failure: suspect Aspiration pneumonitis -Chest x-ray with some interstitial prominence, low BNP -2L NC *Leukocytosis: afebrile. low PCT. likely reactive from nausea/vomiting/ gastroenteritis *Hypotension in ED: volume depletion from above + baseline low (looking at old ED visits and PCP notes, she seems to run in 90's-100's systolic at baseline) -resolution in ED *History of orthostatic hypotension: *TRUMAN on CPAP: *Depression/anxiety: *GERD P: -Status post IV fluid hydration -monitor o2 closely, IS hourly -wean down O2 -f/u CBC, Abx held for now -Home CPAP - -ppx: Lovenox/home PPI
[2018-08-14 09:53] LABS: Band Neutrophils % 11 % (0-10); Basophils % (Manual) 1 % (0-2); Lymphocytes % 4 % (15-49); Monocytes % (Manual) 5 % (1-12); Platelet Estimate NORMAL (NORMAL); RBC Morphology NORMAL (NORMAL); Segmented Neutrophils % 79 % (38-78); Toxic Granulation 1+ (NONE SEEN)
[2018-08-14] MEDS ORDERED: ACETAMINOPHEN 500 MG TABLET PO PRN (11:02)
[2018-08-14] MEDS ORDERED: PROCHLORPERAZINE 10 MG/2 ML VIAL IV PRN (11:02)
[2018-08-14] MEDS ORDERED: KETOROLAC TROMETHAMINE OPHTHALMIC PRN (11:02)
[2018-08-14] MEDS ORDERED: [UNRECOGNIZED DRUG - OTHER] OU PRN (11:02)
[2018-08-14] MEDS ORDERED: IPRATROPIUM/ALBUTEROL 3 ML AMPUL.NEB NEB PRN (11:02)
[2018-08-14] MEDS ORDERED: ONDANSETRON ODT 4 MG TABLET SL PRN (11:02)
[2018-08-14] MEDS: traMADol 50 MG TABLET PO PRN ×2 (12:03→23:07)
[2018-08-14] MEDS: 0.9 % SODIUM CHLORIDE 10 ML SYRINGE IV SCH ×2 (13:30→20:00)
[2018-08-14] MEDS: ACETAMINOPHEN 325 MG TABLET PO PRN (17:41)
[2018-08-14] MEDS: OMEPRAZOLE 20 MG CAPSULE PO SCH (17:43)
[2018-08-14] MEDS: TIMOLOL OU SCH (20:10)
[2018-08-14] MEDS: EYE OU SCH (20:10)
[2018-08-14] MEDS: LATANOPROST OPHTH DROPS 2.5ML BOTTLE OU SCH (20:10)
[2018-08-14] MEDS: ATORVASTATIN 20 MG TABLET PO SCH (20:10)
[2018-08-14] MEDS: DORZOLAMIDE OU SCH (20:10)
[2018-08-14] MEDS: TRIAMCINOLONE CRM 0.5% TUBE 15GM TOPICAL SCH (20:43)
[2018-08-15] MEDS: ACETAMINOPHEN 325 MG TABLET PO PRN (02:14)
[2018-08-15] MEDS: 0.9 % SODIUM CHLORIDE 10 ML SYRINGE IV SCH ×3 (05:56→22:06)
[2018-08-15 06:57] LABS: ALT/SGPT 23 U/l (0-40); Albumin 3.3 gm/dL (3.2-5.2); Albumin/Globulin Ratio 1.4 (1.0-2.3); Alkaline Phosphatase 45 U/L (39-117); Bilirubin,Direct 0.2 mg/dL (0.0-0.3); Blood Urea Nitrogen 10 mg/dl (8-23); Gamma Glutamyl Transpeptidase 19 U/L (5-36); Uric Acid 3.8 mg/dL (2.5-8.0)
[2018-08-15 07:12] LABS: Basophils # (Auto) 0 K/mcL (0.0-0.3); Basophils % (Auto) 0.2 % (0.0-2.0); Eosinophils # (Auto) 0.1 K/mcL (0.0-0.7); Eosinophils % (Auto) 1.1 % (0.0-7.0); Granulocytes % (Auto) 80.5 % (38.0-78.0); Lymphocytes # (Auto) 0.7 K/mcL (1.5-4.8); Lymphocytes % (Auto) 12.3 % (15.5-49.0); Mean Cell Volume 98.6 fL (80.0-100.0); Mean Corpuscular HGB Conc 33.7 g/dL (31.0-36.0); Mean Corpuscular Hemoglobin 33.3 pg (26.0-34.0); Monocytes # (Auto) 0.3 K/mcL (0.1-0.9); Monocytes % (Auto) 5.9 % (1.0-12.0); Platelet Count 180 K/mcL (140-440)
[2018-08-15] MEDS: OMEPRAZOLE 20 MG CAPSULE PO SCH (07:53)
[2018-08-15] MEDS: ASPIRIN 81 MG TAB.CHEW PO SCH (09:38)
[2018-08-15] MEDS: SERTRALINE 50 MG TABLET PO SCH (09:38)
[2018-08-15] MEDS: ENOXAPARIN 40 MG/0.4 ML SYRINGE SQ SCH (09:38)
[2018-08-15] MEDS: Solifenacin Succinate [Vesicare] 10 mg Tab PO SCH (09:39)
[2018-08-15] MEDS: DORZOLAMIDE OU SCH ×2 (09:40→21:00)
[2018-08-15] MEDS: EYE OU SCH ×2 (09:40→21:00)
[2018-08-15] MEDS: TIMOLOL OU SCH ×2 (09:40→21:00)
[2018-08-15] MEDS: TRIAMCINOLONE CRM 0.5% TUBE 15GM TOPICAL SCH ×2 (09:40→19:36)
[2018-08-15] MEDS ORDERED: 0.9 % SODIUM CHLORIDE 1,000 ML IV SCH (09:45)
[2018-08-15] MEDS: PANTOPRAZOLE 40 MG VIAL IV SCH ×2 (10:19→17:32)
--- NOTE | 2018-08-15 12:56 | Internal Med Progress Note ---
Medical - PN: Subj Patient information: Note initiated : 08/15/18 at 12:53 pm Service Date, if different from initiated Date: [] Patient: Davida Thorne a 82 y/o F admitted on 08/14/18 for nausea. Chief Complaint: [] Interval history: Ms. Thorne is a 82 year old F Complains of nausea vomiting starting at 4 AM this morning from [place]. Last night she ate some soup and avocado went to bed feeling okay. She woke up around 4 feeling like she had an upset stomach she went to the bathroom threw up food contents. Went back to bed and immediately return to the bathroom to throw up. She said she been throwing up all morning. She threw up about 20 times first of this food ended up being yellow fluid very acidic. Denies any chest pain or shortness of breath. States her stomach is still upset. No recent illnesses. No diarrhea. Patient seen in the ER found to be mildly hypotensive given fluid resuscitation with good results. Also found to be mildly hypoxic, and placed on nasal cannula. Chest x-ray done with some interstitial prominence low BNP. No peripheral edema. Because of the hypoxia patient will be observed overnight. Concern for aspiration pneumonitis. 08/15 Pt seen exained, no more nausea, but still has diarrhea, feels weak, but otherwise better labs stble no e/o acute infection, leucocytosis resolved tooth infection present, followed by [facility] Pertinent ROS: Denies headache, dizziness Denies chest pain, palpitations Denies cough or shortness of breath Denies abdominal pain, nausea or vomiting. diarrhea prsent, abdominal wall sorensss from vomiting. - Constitutional Vitals: Vital Signs Temp Pulse Resp BP Pulse Ox 98.8 F 72 15 94/60 93 08/15/18 11:29 08/15/18 11:29 08/15/18 11:29 08/15/18 11:29 08/15/18 11:29 Period Temp Pulse Resp BP Sys/[place] Pulse Ox Last 24 Hr 97.6 F-98.8 F 69-120 14-20 91-99/54-64 90-95 Intake and Output 08/14/18 08/15/18 08/15/18 21:59 05:59 13:59 Intake Total 480 / 480 300 / 300 Output Total 200 / 200 Balance 480 / 480 100 / 100 Weight 172 lb 8 oz Intake & Output: Intake & Output 08/14/18 08/15/18 08/15/18 21:59 05:59 13:59 Intake Total 480 / 480 300 / 300 Output Total 200 / 200 Balance 480 / 480 100 / 100 Weight 172 lb 8 oz Intake: Oral 480 / 480 300 / 300 Output: Stool 200 / 200 Other: Meal Dinner Percent of Meal Consumed Refused Feeding Ability Independent Stool Size Small Stool Color Brown Brown Stool Consistency Loose Watery # Voids 1 1 # Bowel Movements 1 # of times incontinent of 1 1 Bowels Exam: Constitutional; Afebrile, cooperative, alert, not in distress. Eyes- No icterus, , No periorbital swelling Ears- Ext ear normal, hearing normal to conversation. Neck- Midline trachea, supple Respiratory system: Air Entry equal on both sides, No crackles or wheezing, no rhonchi. CVS- Rate rhythm regular, S1,S2 heard, no gallop, no rub. Abdomen- Soft nontender abdomen, no organomegaly, no tenderness, no guarding or rigidity, [employer]- AOOx3, moving all extremities, no gross focal deficit noted. Medical - PN: Obj Da - Labs CBC & Chem 7: 08/15/18 04:41 08/15/18 04:41 Labs: Abnormal Lab Results 08/15/18 08/15/18 08/14/18 04:41 04:41 08:55 WBC RBC 3.80 L Hgb Gran % 80.5 H Lymph % (Auto) 12.3 L Gran # Lymph # (Auto) 0.7 L Seg Neutrophils % 79 H Band Neutrophils % 11 H Lymphocytes % 4 L Vacuolated Neuts 1+ A Toxic Granulation 1+ A Glucose Calcium 8.2 L Total Bilirubin Total Protein 5.7 L Urine RBC Amorphous Crystals 08/14/18 08/14/18 08/14/18 07:47 04:37 04:37 WBC 13.4 H RBC Hgb 15.3 H Gran % 92.1 H Lymph % (Auto) 3.9 L Gran # 12.3 H Lymph # (Auto) 0.5 L Seg Neutrophils % Band Neutrophils % Lymphocytes % Vacuolated Neuts Toxic Granulation Glucose 150 H Calcium Total Bilirubin 1.2 H Total Protein Urine RBC 5 H Amorphous Crystals Few A Meds: Medications Acetaminophen (Tylenol) 650 mg PO Q6HP PRN PRN Reason: PAIN/FEVER > 101 Last Admin: 08/15/18 02:14 Dose: 650 mg Albuterol/Ipratropium (Duoneb) 3 ml NEB Q4HRT PRN PRN Reason: Dyspnea Aspirin (Aspirin) 81 mg PO DAILY [facility] Last Admin: 08/15/18 09:38 Dose: 81 mg Atorvastatin Calcium (Lipitor) 40 mg PO HS [facility] Last Admin: 08/14/18 20:10 Dose: 40 mg Enoxaparin Sodium (Lovenox) 40 mg SQ DAILY [facility] Last Admin: 08/15/18 09:38 Dose: 40 mg Sodium Chloride (Sodium Chloride 0.9%) 1,000 mls @ 100 mls/hr IV .Q10H [facility] Stop: 08/15/18 19:44 Last Admin: 08/15/18 11:22 Dose: 100 mls/hr Latanoprost (Xalatan Ophth Drops) 1 gtt OU HS [facility] Last Admin: 08/14/18 20:10 Dose: 1 gtt Solifenacin Succinate [Vesicare] 10 Mg Tab 5 mg PO QDAY [facility] Last Admin: 08/15/18 09:39 Dose: 5 mg Ondansetron HCl (Zofran Odt) 4 mg SL Q6HP PRN PRN Reason: Nausea And Vomiting Pantoprazole Sodium (Protonix) 40 mg IV BIDAC [facility] Last Admin: 08/15/18 10:19 Dose: 40 mg Dorzolamide Hcl [ (Trusopt] Eye Drops) 1 dose OU BID [facility] Last Admin: 08/15/18 09:40 Dose: 1 dose Ketorolac Tromethamine [Acular ] Eye Drops 1 dose OU TIDP PRN PRN Reason: bleheparitis Prochlorperazine Edisylate (Compazine) 5 mg IV Q4HP PRN PRN Reason: Nausea And Vomiting Sertraline HCl (Zoloft) 50 mg PO QDAY [facility] Last Admin: 08/15/18 09:38 Dose: 50 mg Sodium Chloride (Saline Flush) 10 ml IV Q8 [facility] Last Admin: 08/15/18 12:25 Dose: Not Given Tramadol HCl (Ultram) 50 mg PO Q4H PRN PRN Reason: Pain Last Admin: 08/14/18 23:07 Dose: 50 mg Triamcinolone Acetonide (Kenalog Crm 0.5%) 1 dose TOPICAL BID [facility] Last Admin: 08/15/18 09:40 Dose: Not Given Medical - PN: A/P - Time Spent With Patient Total time spent is greater than 50% in coordination of care (as documented) at patient's floor/unit and/or counseling patient: - Narrative A/P Narrative: A/P Acute gastrenteritis- Viral vs food borne- resolving, continue hydration. Aspiration pneumoniitis- stable, wbc trending down, monitor, not on abx Hypotension- resolved, TRUMAN on cpap Depression/Anxiety stable GERD on prilosec bid, switch to iv ppi for now, hep sq for dvt prophylaxis. Medical - PN: Qual - VTE Deep Vein Thrombosis/Pulmonary Embolism Present on Admission: No
[2018-08-15] MEDS: ATORVASTATIN 20 MG TABLET PO SCH ×2 (18:42→19:36)
[2018-08-15] MEDS: LATANOPROST OPHTH DROPS 2.5ML BOTTLE OU SCH (21:00)
[2018-08-16 05:33] LABS: Basophils # (Auto) 0 K/mcL (0.0-0.3); Basophils % (Auto) 0.7 % (0.0-2.0); Eosinophils # (Auto) 0.2 K/mcL (0.0-0.7); Eosinophils % (Auto) 4.2 % (0.0-7.0); Granulocytes % (Auto) 48.8 % (38.0-78.0); Lymphocytes # (Auto) 1.4 K/mcL (1.5-4.8); Lymphocytes % (Auto) 34.3 % (15.5-49.0); Mean Corpuscular Hemoglobin 33.3 pg (26.0-34.0); Monocytes # (Auto) 0.5 K/mcL (0.1-0.9); Platelet Count 184 K/mcL (140-440); RBC 3.83 M/mcL (4.00-5.20); Red Cell Distribution Width 13.9 % (11.5-14.5)
[2018-08-16 06:11] LABS: ALT/SGPT 26 U/l (0-40); Albumin 3.3 gm/dL (3.2-5.2); Albumin/Globulin Ratio 1.3 (1.0-2.3); Alkaline Phosphatase 55 U/L (39-117); Bilirubin,Direct < 0.2 mg/dL (0.0-0.3); Blood Urea Nitrogen 10 mg/dl (8-23); Gamma Glutamyl Transpeptidase 22 U/L (5-36); Uric Acid 4.1 mg/dL (2.5-8.0)
--- NOTE | 2018-08-16 09:14 | Discharge Summary ---
Medical - DS: Prov Patient information: Note initiated : 08/16/18 at 9:11 am Service Date, if different from initiated Date: [] Patient: Davida Thorne 82 y/o F admitted on 08/14/18 for nausea. Chief Complaint: [] Date of admission: 08/14/18 10:53 Discharge date: 08/16/18 Primary care physician: Iam Peace Consults: 08/14/18 08:49 Consult to Physician [CONS] Stat Comment: Consulting Provider: Anuj Langston Reason For Exam: Physician to Consult Discharging clinician: Ron Fraire Medical - DS: Meds - Discharge Medications Active and Home Medications: Home Medications dorzolamide 2 % eye drops 1 drp OPHTHALMIC BID #10 ml 12/08/16 [Rx Confirmed Last Taken 08/13/18] Aspirin [Adult Low Dose Aspirin EC] 81 mg PO DAILY 04/15/17 [History Confirmed 08/14/18 Last Taken 08/13/18] Calcium Citrate/Vitamin D3 [Citracal + D Maximum Caplet] 1 each PO BID 04/15/17 [History Confirmed 08/14/18 Last Taken 08/13/18] Vitamin E 400 unit PO DAILY 04/15/17 [History Confirmed 08/14/18 Last Taken ] fluticasone 50 mcg/actuation nasal spray,suspension 1 spray INTRANASAL QDAY PRN 09/30/17 [History Confirmed 08/14/18 Last Taken Unknown] ibuprofen 200 mg tablet 800 mg PO QDAY PRN tab 09/30/17 [History Confirmed Last Taken 08/13/18] ketorolac 0.5 % eye drops 1 drp OPHTHALMIC Q8H PRN 09/30/17 [History Confirmed 08/14/18 Last Taken Unknown] magnesium oxide 400 mg capsule 400 mg PO QDAY cap 09/30/17 [History Confirmed 08/14/18 Last Taken 08/13/18] sertraline 50 mg tablet 50 mg PO QDAY #90 tab 11/24/17 [Rx Confirmed 08/14/18 Last Taken 08/13/18] triamcinolone acetonide 0.1 % topical ointment 1 applic TOPICAL BID #30 g [Rx Confirmed 08/14/18 Last Taken 08/13/18] benzonatate 100 mg capsule 100 mg PO TID PRN 06/01/18 [History Confirmed Last Taken 08/13/18] cholecalciferol (vitamin D3) 5,000 unit capsule 5,000 unit PO QDAY 06/01/18 [ History Confirmed 08/14/18 Last Taken 08/13/18] phenazopyridine 95 mg tablet 190 mg PO TID PRN tab 06/01/18 [History Confirmed 08/14/18 Last Taken 08/13/18] atorvastatin 40 mg tablet 40 mg PO QDAY #90 tab 06/10/18 [Rx Confirmed 08/14/18 Last Taken 08/13/18] calcium carb,cit ER 600 mg calcium-vit D3 500 unit tablet,ext.release 1 tab PO BID tab 06/10/18 [History Confirmed 08/14/18 Last Taken 08/13/18] cetirizine 10 mg capsule 10 mg PO QDAY cap 06/10/18 [History Confirmed Last Taken 08/13/18] glucosamine sulfate 1,500 mg PO BID 06/10/18 [History Confirmed 08/14/18 Last Taken 08/13/18] ibuprofen 200 mg tablet 400 mg PO Q4H PRN tab 06/10/18 [History Confirmed 08/14 Last Taken 08/13/18] ketorolac 0.5 % eye drops 1 drp OPHTHALMIC TID PRN ml 06/10/18 [History Confirmed 08/14/18 Last Taken 08/13/18] latanoprost 0.005 % eye drops 1 drp OPHTHALMIC QHS ml 06/10/18 [History Confirmed 08/14/18 Last Taken 08/13/18] omega-3 fatty acids 1,000 mg capsule 1,000 mg PO QDAY 06/10/18 [History Confirmed 08/14/18 Last Taken 08/13/18] solifenacin 5 mg tablet 5 mg PO QDAY 06/10/18 [History Confirmed 08/14/18 Last Taken 08/13/18] tramadol 50 mg tablet 50 mg PO Q4H PRN tab 06/10/18 [History Confirmed Last Taken 08/14/18] omeprazole 40 mg capsule,delayed release 40 mg PO BID #180 cap 06/30/18 [Rx Confirmed 08/14/18 Last Taken 08/13/18] Acetaminophen [Tylenol] 500 mg PO Q4-6HP PRN 08/14/18 [History Confirmed Last Taken 08/13/18] Medical - DS: Hosp Hospital course: Ms. Thorne is a 82 year old F Complains of nausea vomiting starting at 4 AM this morning from [place]. Last night she ate some soup and avocado went to bed feeling okay. She woke up around 4 feeling like she had an upset stomach she went to the bathroom threw up food contents. Went back to bed and immediately return to the bathroom to throw up. She said she been throwing up all morning. She threw up about 20 times first of this food ended up being yellow fluid very acidic. Denies any chest pain or shortness of breath. States her stomach is still upset. No recent illnesses. No diarrhea. Patient seen in the ER found to be mildly hypotensive given fluid resuscitation with good results. Also found to be mildly hypoxic, and placed on nasal cannula. Chest x-ray done with some interstitial prominence low BNP. No peripheral edema. Because of the hypoxia patient will be observed overnight. Concern for aspiration pneumonitis. The patient was treated conservatively, patient responded to treatment very well , the patient at the time of discharge was able to tolerate po diet well, no more diarrhea, no nauseas or vomiting. The patient likely had some food borne or viral gastroenteritis. No changes done to her [facility] home meds at discharge. Discharge diagnosis: gastroenteritis. - Time Spent with Patient Total time spent providing and/or coordinating discharge services: Less than 30 minutes Medical - DS: Exam - Constitutional Vitals: Vital Signs Temp Pulse Pulse Resp BP Pulse Ox 08/16/18 08:00 97.6 F 78 16 106/68 93 08/16/18 04:28 98.7 F 72 16 104/68 94 08/15/18 23:45 98.0 F 72 16 106/70 91 08/15/18 18:37 98.5 F 72 16 106/68 08/15/18 16:00 98.1 F 75 16 110/70 92 08/15/18 14:56 80 18 08/15/18 11:29 98.8 F 72 15 94/60 93 Intake and Output 08/15/18 08/16/18 08/16/18 21:59 05:59 13:59 Intake Total 1500 / 1500 Output Total 800 / 800 500 / 500 251 / 251 Balance -800 / -800 1000 / 1000 -251 / -251 Intake: IV 1000 / 1000 Oral 500 / 500 Output: Void Amount 800 / 800 500 / 500 250 / 250 # of times incontinent of urine Other: Urine Color Pale Urine Odor Normal # Voids 1 1 Weight 171 lb 3.2 oz Additional comments: Constitutional; Afebrile, cooperative, alert, not in distress. Eyes- No icterus, , No periorbital swelling Ears- Ext ear normal, hearing normal to conversation. Neck- Midline trachea, supple Respiratory system: Air Entry equal on both sides, No crackles or wheezing, no rhonchi. CVS- Rate rhythm regular, S1,S2 heard, no gallop, no rub. Abdomen- Soft nontender abdomen, no organomegaly, no tenderness, no guarding or rigidity, [employer]- AOOx3, moving all extremities, no gross focal deficit noted. Medical - DS: Data Labs on day of discharge: Labs from last 24 hours 08/16/18 08/16/18 04:23 04:23 WBC 4.1 L RBC 3.83 L Hgb 12.8 Hct 37.5 MCV 98.0 MCH 33.3 MCHC 34.0 RDW 13.9 Plt Count 184 MPV 8.1 Gran % 48.8 Lymph % (Auto) 34.3 [place]son % (Auto) 12.0 Eos % (Auto) 4.2 Baso % (Auto) 0.7 Gran # 2.0 Lymph # (Auto) 1.4 L [place]son # (Auto) 0.5 Eos # (Auto) 0.2 Baso # (Auto) 0 Sodium 141 Potassium 3.7 Chloride 106 Carbon Dioxide 25 Anion Gap 10.0 BUN 10 Creatinine 0.8 GFR Calculation 68 Glucose 94 Uric Acid 4.1 Calcium 8.6 Phosphorus 2.6 L Magnesium 1.9 Total Bilirubin 0.8 Direct Bilirubin < 0.2 GGT 22 AST 34 ALT 26 Alkaline Phosphatase 55 Lactate Dehydrogenase 175 Total Protein 5.9 Albumin 3.3 Globulin 2.6 Albumin/Globulin Ratio 1.3 Triglycerides 101 Medical - DS: A/P - Patient/Caregiver Discharge Instructions Activity: increase activity as tolerated Diet: Regular Diet Additional Instructions: Keep your self well hydrated GO to the ER if fever, shortness of breath, chest pain or any other acute concern. No change has been made to your chronic home medications - Follow up Plan Follow up with: Iam Peace MD [Primary Care Provider] - Disposition: Home, Self-Care Prognosis: Fair Rehab Potential: Fair I certify that the patient requires SNF services: No Overall status at discharge: patient is progressing back to baseline Medical - DS: Qual - VTE Deep Vein Thrombosis/Pulmonary Embolism Present on Admission: No
[2018-08-16] MEDS: Solifenacin Succinate [Vesicare] 10 mg Tab PO SCH (10:15)
[2018-08-16] MEDS: SERTRALINE 50 MG TABLET PO SCH (10:15)
[2018-08-16] MEDS: PANTOPRAZOLE 40 MG VIAL IV SCH (10:15)
[2018-08-16] MEDS: ASPIRIN 81 MG TAB.CHEW PO SCH (10:15)
[2018-08-16] MEDS: 0.9 % SODIUM CHLORIDE 10 ML SYRINGE IV SCH (10:16)
[2018-08-16] MEDS: ENOXAPARIN 40 MG/0.4 ML SYRINGE SQ SCH (10:16)
[2018-08-16] MEDS: TRIAMCINOLONE CRM 0.5% TUBE 15GM TOPICAL SCH (10:18)
[2018-08-16] MEDS: TIMOLOL OU SCH (10:23)
[2018-08-16] MEDS: EYE OU SCH (10:23)
[2018-08-16] MEDS: DORZOLAMIDE OU SCH (10:23)
[2018-08-16] MEDS: ACETAMINOPHEN 325 MG TABLET PO PRN (10:30)
== END 2018-08-16 11:15 | disposition home or self-care (01) ==
LOC: MEDSUR 04:22 → ED 04:22 → MEDSUR 10:53
PROVIDERS: ADMIT Internal Medicine; ATTEND Internal Medicine